=== PATIENT | male | born 1950 | race Caucasian/White ===

== ENCOUNTER → 2016-04-02 | Outpatient (CLI) | payer MEDICARE, BC ==
[2016-04-02 21:28] LABS: CH 31.6; CHCM 33.1; HCT 46.3 % (39.0-53.0); HGB 15.3 gm/dL (13.0-17.5); MCH 31.7 pg (25.0-35.0); MCHC 33.1 g/dL (31.0-37.0); MCV 95.7 fL (80.0-100.0); Mean Platelet Volume 9.1; RBC 4.83 m/uL (4.30-5.90); RDW 13.1 % (11.5-15.5); WBC 4.7 k/uL (3.8-10.6)
[2016-04-02 21:35] LABS: Anion Gap 10 mmol/L; Blood Urea Nitrogen 19 mg/dL (9-20); Calcium 10.4 mg/dL (8.4-10.2); Carbon Dioxide 29 mmol/L (22-30); Chloride 104 mmol/L (98-107); Glucose 99 mg/dL (74-99); Non-African American GFR(MDRD) >60 (>60 ml/min/1.73 sqM); Potassium 5.4 mmol/L (3.5-5.1); Sodium 143 mmol/L (137-145)
== END | disposition home or self-care (01) ==
LOC: MMGSC 15:10
PROVIDERS: ATTEND Specialist
DX: J43.9 Emphysema, unspecified (principal)
CPT/HCPCS: 36415; 80048; 85027

== ENCOUNTER → 2017-04-12 | Outpatient (CLI) | payer MEDICARE, BC ==
[2017-04-12 19:01] LABS: Basophils % (A) 1 %; Eosinophils # (A) 0.3 k/uL (0-0.7); Eosinophils % (A) 6 %; HCT 45.5 % (39.0-53.0); HGB 14.9 gm/dL (13.0-17.5); Lymphocytes # (A) 1.1 k/uL (1.0-4.8); Lymphocytes % (A) 24 %; MCH 30.6 pg (25.0-35.0); MCHC 32.7 g/dL (31.0-37.0); MCV 93.5 fL (80.0-100.0); Mean Platelet Volume 9.2; Monocytes # (A) 0.3 k/uL (0-1.0); Monocytes % (A) 6 %; Neutrophils # (A) 2.8 k/uL (1.3-7.7); Neutrophils % (A) 60 %; Platelet Count 206 k/uL (150-450); RBC 4.87 m/uL (4.30-5.90); WBC 4.8 k/uL (3.8-10.6)
[2017-04-12 19:05] LABS: ALT 106 U/L (21-72); AST 58 U/L (17-59); Albumin 4.6 g/dL (3.5-5.0); Alkaline Phosphatase 43 U/L (38-126); Anion Gap 11 mmol/L; Blood Urea Nitrogen 22 mg/dL (9-20); Calcium 10.3 mg/dL (8.4-10.2); Carbon Dioxide 28 mmol/L (22-30); Chloride 105 mmol/L (98-107); Cholesterol 123 mg/dL (<200); Glucose 100 mg/dL (74-99); HDL Cholesterol 49 mg/dL (40-60); LDL Cholesterol,Calculated 61 mg/dL (0-99); Potassium 4.6 mmol/L (3.5-5.1); Sodium 144 mmol/L (137-145); Total Protein 7.4 g/dL (6.3-8.2); Triglycerides 64 mg/dL (<150)
[2017-04-12 19:24] LABS: T4, Free (Free Thyroxine) 1.07 ng/dL (0.78-2.19)
[2017-04-12 19:38] LABS: PSA Annual Screen 3.04 ng/mL (0.00-4.00)
== END | disposition home or self-care (01) ==
LOC: MMGSC 10:24
PROVIDERS: ATTEND Family Medicine
DX: I10 Essential (primary) hypertension (principal); E78.5 Hyperlipidemia, unspecified; Z12.5 Encounter for screening for malignant neoplasm of prostate
CPT/HCPCS: 84439; 80061; 80053; 84443; 85025; 36415; G0103

== ENCOUNTER → 2017-04-12 | Outpatient (CLI) | payer MEDICARE, BC | END | disposition home or self-care (01) | LOC: MMGSC 10:29 | PROVIDERS: ATTEND Specialist | DX: I49.3 Ventricular premature depolarization (principal); Q21.1 Atrial septal defect; E78.00 Pure hypercholesterolemia, unspecified; I10 Essential (primary) hypertension; I60.9 Nontraumatic subarachnoid hemorrhage, unspecified; N40.0 Benign prostatic hyperplasia without lower urinary tract symptoms; R94.31 Abnormal electrocardiogram [ECG] [EKG] | CPT/HCPCS: 82550 ==

== ENCOUNTER → 2018-04-12 | Outpatient (CLI) | payer MEDICARE, BC ==
--- NOTE | 2018-04-12 12:07 | MR ---
EXAMINATION TYPE: MR lumbar spine wo con DATE OF EXAM: 04/12/2018 11:09 AM COMPARISON: NONE HISTORY: Low back pain CONTRAST: None Multiplanar, MultiSpin echo imaging of the lumbar spine was performed. L1-L2: Normal disc appearance without desiccation. No herniation, protrusion or disc bulging. No ca nal stenosis is present. Foramina are patent bilaterally. L2-L3: Mild to moderate disc desiccation. Circumferential disc bulge. Mild effacement ventral thecal sac. No evidence for central stenosis or disc herniation. Foramina are patent bilaterally. L3-L4: Mild to moderate disc desiccation. Circumferential disc bulge. Mild effacement ventral thecal sac. No evidence for central stenosis or disc herniation. Foramina are patent bilaterally. L4-L5: Moderate the disc desiccation. Circumferential disc bulge moderate in degree with effacement v entral thecal sac. Effacement ventral thecal sac with bilateral lateral recess stenosis. No overt meg tral stenosis. Bilateral foraminal encroachment right greater than left. Grade 1 anterolisthesis L4 a nd L5 measuring 3 mm. L5-S1: Severe disc desiccation. Circumferential disc bulge. Mild effacement ventral thecal sac. No ev idence for central stenosis or disc herniation. Foramina are patent bilaterally. Lumbar segments are intact. No paraspinal masses are identified. Conus medullaris has a normal appe arance. Left renal cyst partially imaged. Scattered ventral spondylosis identified. IMPRESSION: 1. Multilevel lumbar degenerative disc disease and disc bulging. 2. Bilateral lateral recess stenosis L4-5 as noted.
== END ==
LOC: RADMRIMAIN 10:35
PROVIDERS: ATTEND Psychiatry & Neurology Neurology
DX: M48.061 Spinal stenosis, lumbar region without neurogenic claudication (principal); M51.26 Other intervertebral disc displacement, lumbar region; M51.36 Other intervertebral disc degeneration, lumbar region
CPT/HCPCS: 72148

== ENCOUNTER 2018-04-21 09:17 | Day surgery (SDC) | payer MEDICARE, BC ==
[2018-04-19 17:20] VITALS: BMI 26.8
--- NOTE | 2018-04-20 17:45 | HP ---
HISTORY AND PHYSICAL CHIEF COMPLAINT: Right hand pain and numbness. HISTORY OF PRESENT ILLNESS: The patient is a 68-year-old [id number] retired gentleman who presents with progressive right hand pain and numbness for the past several years. He has had significant night symptoms in addition to difficulty with gripping and grasping. He has tried bracing and medications, with only partial temporary relief. PAST MEDICAL HISTORY: Significant for: 1. Hypertension. 2. Previous CVA. PAST SURGICAL HISTORY: Significant for: 1. Left knee arthroscopy. 2. Hernia repair. 3. Appendectomy. CURRENT MEDICATIONS: 1. Amlodipine. 2. Aspirin. 3. Atorvastatin. 4. Gabapentin. 5. Celebrex. ALLERGIES: CODEINE. FAMILY HISTORY: Significant for cancer and heart disease. SOCIAL HISTORY: Negative for current tobacco or alcohol use. REVIEW OF SYSTEMS: Sixteen-point review of systems otherwise is reviewed and is noncontributory. PHYSICAL EXAMINATION: The patient is approximately 5 feet 10 inches, 185 pounds of mesomorphic habitus. HEENT exam is nonfocal. Neck is supple. He is nontender about the right shoulder and elbow. On examination of the right wrist, he has a positive Tinel's over the carpal canal. He has a positive carpal tunnel compression test. Abductor pollicis brevis strength is 5-/ 5. He has moderate thenar wasting. Light touch is diminished in the right thumb, index, middle and ring finger. EMG report 03/01/2018 of right upper extremity shows severe carpal tunnel syndrome. IMPRESSION: Right carpal tunnel syndrome, symptomatic. RECOMMENDATIONS: I talked to the patient at length regarding his condition and treatment options. At this point he is quite symptomatic and opts to proceed with surgery. We will plan to proceed with right carpal tunnel release. Risks and benefits were discussed at length in layman's terms. We will likely perform that utilizing local anesthetic and IV sedation as an outpatient procedure. MMODL / IJN: [id number] / CHRISTIANE
[~2018-04-21 09:17] MED LIST: DEXAMETHASONE SOD PHOSPHATE 10 MG/ML 1 ML VIAL IV ONE; LACTATED RINGERS 1,000 ML IV SCH; MIDAZOLAM 2 MG/2 ML VIAL IV PRN; ONDANSETRON 4 MG/2 ML VIAL IVP ONE; ceFAZolin IN SWFI 2 GM/20 ML SYRINGE IVP ONE; fentaNYL (PF) 50 MCG/ML 2 ML AMP IV PRN
[2018-04-21 09:45] VITALS: TEMP 97.6
[2018-04-21] MEDS ORDERED: LIDOCAINE 1% 20 ML VIAL (10MG/ML) FOR IV START INTRADERMA ONE (09:58)
[2018-04-21] MEDS ORDERED: BUPIVACAINE (PF) 0.25% 30 ML VIAL SQ ONE ×2 (11:45→11:59)
[2018-04-21] MEDS ORDERED: fentaNYL (PF) 50 MCG/ML 2 ML AMP ONE (11:45)
[2018-04-21] MEDS ORDERED: PROPOFOL 10 MG/ML 20 ML VIAL IV ONE (11:45)
[2018-04-21] MEDS ORDERED: MIDAZOLAM 2 MG/2 ML VIAL ONE (11:45)
[2018-04-21] MEDS ORDERED: SODIUM CHLORIDE 0.9% 50 ML with ceFAZolin 2,000 MG IV ONE ×2 (11:50)
--- NOTE | 2018-04-21 12:16 | P.OP ---
Date of Procedure: 04/21/18 Preoperative Diagnosis: Right carpal tunnel syndromesymptomatic Postoperative Diagnosis: Same Procedure(s) Performed: Right carpal tunnel release Anesthesia: MAC, local Surgeon: Rigo Briones Estimated Blood Loss (ml): 2 Pathology: none sent Condition: stable Disposition: PACU Indications for Procedure: The patient is a 68-year-old gentleman who presents with progressive right hand pain and numbness secondary to carpal tunnel syndrome despite conservative measures. A discussion of the risks and benefits of operative intervention was made with patient. He opted to proceed. Operative risks to include infection, neurovascular injury, development of blood clots, possible incomplete resolution of symptoms, possible recurrence of symptoms and need for subsequent procedures was discussed. Informed consent was obtained. Operative Findings: As below Description of Procedure: The patient was brought to the operating room, and after induction of IV sedation the right upper extremity was prepped and draped in normal fashion. The proposed incision site was outlined skin marker in line with the radial aspect the fourth ray extending from the volar wrist crease distally 2-1/2 cm. One quarter percent plain Marcaine was injected into the proposed incision site. 9 mL was utilized. The tourniquet was inflated to 250 mmHg. The skin incision was then made. The skin was incised sharply. Subcutaneous tissues were divided sharply the superficial palmar fascia was identified and split in line with the skin incision. The transverse carpal ligament was identified and transected under direct visualization distally to level the palmar fat pad. Proximal was taken level of the volar wrist crease. A plane above and below the transverse carpal ligament was then bluntly developed with tenotomies. The confluence of the distal forearm fascia and the transverse carpal ligament was then transected under direct visualization proximally with the tines pointed in the ulnar direction. I felt this was adequate proximal release. Neural lysis was not performed. The wound was irrigated with normal saline. Electrocautery was used for hemostasis. The skin was reapproximated with simple 3-0 nylon sutures. A sterile dressing was applied. The tourniquet was deflated with less than 15 minutes total tourniquet time. Patient was awoken from sedation and transferred to the recovery room in good condition. Blood loss was estimated 1 mL. No complications were incurred. Sponge and needle counts were correct at the end the case.
[2018-04-21 13:04] VITALS: PULSE 55; RESP 18
[2018-04-21 13:18] VITALS: BP 133/81
== END 2018-04-21 13:40 | disposition home or self-care (01) ==
LOC: OR 09:17
PROVIDERS: ATTEND Orthopaedic Surgery
DX: G56.01 Carpal tunnel syndrome, right upper limb (principal); I10 Essential (primary) hypertension; R56.9 Unspecified convulsions; G25.0 Essential tremor; G47.33 Obstructive sleep apnea (adult) (pediatric); Z99.89 Dependence on other enabling machines and devices; Z79.82 Long term (current) use of aspirin; Z79.899 Other long term (current) drug therapy; Z88.5 Allergy status to narcotic agent; Z86.73 Personal history of transient ischemic attack (TIA), and cerebral infarction without residual deficits
CPT/HCPCS: 64721; J2250; J0690; J3010; J2704

== ENCOUNTER → 2019-11-21 | Outpatient (CLI) | payer MEDICARE, BC ==
[~2019-11-21] MED LIST changes: -DEXAMETHASONE SOD PHOSPHATE 10 MG/ML 1 ML VIAL IV ONE; +IODINE/POTASS IOD (LUGOLS) BOTTLE TOPICAL ONE; -LACTATED RINGERS 1,000 ML IV SCH; -MIDAZOLAM 2 MG/2 ML VIAL IV PRN; -ONDANSETRON 4 MG/2 ML VIAL IVP ONE; -ceFAZolin IN SWFI 2 GM/20 ML SYRINGE IVP ONE; -fentaNYL (PF) 50 MCG/ML 2 ML AMP IV PRN
--- NOTE | 2019-11-22 07:42 | NM ---
EXAMINATION TYPE: NM DatScan Brain SPECT DATE OF EXAM: 11/21/2019 COMPARISON: MRI brain 2009. HISTORY: Tremors. TECHNIQUE: 10 drops of Lugol's solution was administered 1 hour prior to injection as a thyroid bloc francine agent. After the administration of 4.59 mCi I-123 Ioflupane DaTscan. Images obtained 3 hours p ost injection. SPECT images of the brain were acquired with axial and coronal reconstructions. FINDINGS: The DaTSCAN demonstrates normal uptake of tracer throughout the striata. Consequently there is no evidence of loss of the pre-synaptic dopaminergic terminals on this investigation IMPRESSION: This normal appearance is against a diagnosis of idiopathic Parkinson?s disease (PD) or a Parkinsonia n syndrome (PS) and is seen in healthy individuals and also patients with essential tremor (ET), drug induced parkinsonism, and vascular pseudo-parkinsonism.
== END | disposition home or self-care (01) ==
LOC: RADNMMAIN 10:53
PROVIDERS: ATTEND Psychiatry & Neurology Neurology
DX: G21.19 Other drug induced secondary parkinsonism (principal); G25.0 Essential tremor
CPT/HCPCS: 78803; A9584

== ENCOUNTER → 2019-11-28 | Outpatient (CLI) | payer MEDICARE, BC ==
--- NOTE | 2019-11-28 16:03 | CT ---
EXAMINATION TYPE: CT urogram wo/w con DATE OF EXAM: 11/28/2019 COMPARISON: CT 11/09/2014 HISTORY: hematuria X [address] DLP: 2277 mGycm, Automated Exposure Control for Dose Reduction was Utilized. CONTRAST: CT scan of the abdomen and pelvis is performed with oral and without and with IV Contrast, patient in jected with 100 mL of Isovue 300. FINDINGS: Urinary bladder is urine distended. LUNG BASES: No significant abnormality is appreciated. LIVER/GB: No significant change is appreciated, multiple probable cysts are scattered within the li ryan, gallbladder is unremarkable. PANCREAS: No significant abnormality is seen. SPLEEN: No significant abnormality is seen. ADRENALS: No significant abnormality is seen. KIDNEYS: There are bilateral nonobstructive renal calculi present, largest calculus at the lower pole the left kidney measures 6 mm, smaller calculi present at the lower pole of the right kidney, there is no hydronephrosis. Bilateral cortical cysts are again seen within the kidneys, the largest is at t he upper pole the left kidney and measures approximately 3.3 cm, there parapelvic cysts noted within the left kidney. The ureters show normal course and caliber. BOWEL: No significant abnormality is seen. PROSTATE/SEMINAL VESICLES: Prostate is enlarged, multiple calcifications are present in the base of t he bladder at the interface with the prostate gland, prostate shows deformity and mixed attenuation LYMPH NODES: No greater than 1cm abdominal or pelvic lymph nodes are appreciated. OSSEOUS STRUCTURES: Degenerative disc changes are present in the lumbar spine. OTHER: Urinary bladder shows mixed attenuation likely due to contrast mixing. IMPRESSION: Correlate for possible prostatitis, indeterminate calcifications in contour abnormality o f the prostate gland, there is prostatic hypertrophy. Bilateral nonobstructive nephrolithiasis. Corti clay cysts and parapelvic cysts.
== END | disposition home or self-care (01) ==
LOC: RADCTMAIN 13:22
PROVIDERS: ATTEND Urology
DX: N20.0 Calculus of kidney (principal); Z88.5 Allergy status to narcotic agent
CPT/HCPCS: 82565; 84520; 74178; 36415; 74400; Q9967

== ENCOUNTER → 2020-02-20 | Outpatient (CLI) | payer MEDICARE, BC ==
[2020-02-20 11:58] LABS: African American GFR (CKD) >90 (>60 ml/min/1.73 sqM); Anion Gap 6 mmol/L; Blood Urea Nitrogen 19 mg/dL (9-20); Carbon Dioxide 28 mmol/L (22-30); Chloride 105 mmol/L (98-107); Glucose 109 mg/dL (74-99); Non-African American GFR(CKD) >90 (>60 ml/min/1.73 sqM); Potassium 4.4 mmol/L (3.5-5.1); Sodium 139 mmol/L (137-145)
[2020-02-20 12:15] LABS: Basophils % (A) 1 %; Eosinophils # (A) 0.3 k/uL (0-0.7); Eosinophils % (A) 8 %; HCT 42.9 % (39.0-53.0); HGB 14.1 gm/dL (13.0-17.5); Lymphocytes % (A) 27 %; MCHC 32.7 g/dL (31.0-37.0); MCV 94.6 fL (80.0-100.0); Mean Platelet Volume 7.9; Monocytes # (A) 0.3 k/uL (0-1.0); Monocytes % (A) 8 %; Neutrophils # (A) 2.1 k/uL (1.3-7.7); Neutrophils % (A) 54 %; Platelet Count 188 k/uL (150-450); RBC 4.54 m/uL (4.30-5.90); RDW 12.9 % (11.5-15.5); WBC 3.8 k/uL (3.8-10.6)
== END | disposition home or self-care (01) ==
LOC: LABPAT 11:08
PROVIDERS: ATTEND Urology
DX: Z01.818 Encounter for other preprocedural examination (principal); C61 Malignant neoplasm of prostate; Z79.899 Other long term (current) drug therapy
CPT/HCPCS: 36415; 80048; 85025; 86850; 86900; 86901

== ENCOUNTER 2020-02-29 10:11 | Day surgery (SDC) | payer MEDICARE, BC ==
[2020-02-25 15:16] VITALS: BMI 26.5
--- NOTE | 2020-02-28 16:41 | P.GSHP ---
History of Present Illness H&P Date: 02/24/20 Chief Complaint: Prostate cancer The patient is a 70-year-old white male initially seen in October 2019 for evaluation of gross hematuria. He underwent a TURP approximately 5 years ago. RASHID revealed firmness at the right prostatic base. A computed tomography scan showed bilateral renal calculi and bilateral renal cysts. Cystoscopy revealed calculi adherent to the mucosa of the prostatic urethra. The PSA level was 4.6. Prostate ultrasound revealed a prostate volume of 62.4 mL. 5 of 12 biopsies showed evidence of adenocarcinoma. Biopsies of the right apex and left apex showed low volume [place] 6 adenocarcinoma. I asked his of the right base and right mid showed [place] 7 adenocarcinoma (4+3). Alternative treatment options were reviewed; he is felt to be best suited for IMRT or robotic prostatectomy. He has elected to undergo the latter. He states that he has undergone an umbilical hernia repair in the past, and that he was admitted in 2014 for possible diverticulitis. - Cardiovascular Cardiovascular: Reports high blood pressure - Genitourinary (Male) Genitourinary: Reports hematuria, Reports urinary frequency Past Medical History Past Medical History: CVA/TIA, Hyperlipidemia, Hypertension, Musculoskeletal Disorder, Neurologic Disorder, Prostate Disorder, Sleep Apnea/CPAP/BIPAP Additional Past Medical History / Comment(s): Past hx. of subarachnoid bleed, trigeminal neuralgia, benign essential tremors, uses CPAP, kidney stones History of Any Multi-Drug Resistant Organisms: None Reported Past Surgical History: Appendectomy, Cardiac Ablation, Hernia Repair, Orthopedic Surgery, Prostate Surgery Additional Past Surgical History / Comment(s): TURP, L knee arthroscopy, R toe surgery, cardiac ablation x2, surg for pyloric stenosis as a baby Past Anesthesia/Blood Transfusion Reactions: No Reported Reaction Past Psychological History: No Psychological Hx Reported Past Alcohol Use History: None Reported Past Drug Use History: None Reported - Past Family History Father Additional Family Medical History / Comment(s): MS Sister(s) Family Medical History: Cancer Additional Family Medical History / Comment(s): Breast Brother(s) Family Medical History: Cancer Additional Family Medical History / Comment(s): Lung Cancer. Medications and Allergies Home Medications Medication Instructions Recorded Confirmed Type Aspirin 81 mg PO DAILY 03/13/14 02/25/20 History Primidone [Mysoline] 250 mg PO HS 03/13/14 02/25/20 History Ascorbic Acid [Vitamin C] 500 mg PO DAILY 11/09/14 02/25/20 History Gabapentin [Neurontin] 400 mg PO TID 11/09/14 02/25/20 History Multivitamins, Thera [Multivitamin 1 tab PO DAILY 11/09/14 02/25/20 History (formulary)] Potassium Gluconate 99 mg PO DAILY 11/09/14 02/25/20 History Atorvastatin [Lipitor] 20 mg PO HS 04/19/18 02/25/20 History Calcium/Magnesium/Zinc 1 each PO DAILY 04/19/18 02/25/20 History [Nitlykt-Cxcaykehp-Whuy Tablet] Celecoxib [CeleBREX] 200 mg PO DAILY 04/19/18 02/25/20 History Cholecalciferol [Vitamin D3] 1,000 unit PO DAILY 04/19/18 02/25/20 History Fish Oil/Dha/Epa [Fish Oil 1,200 1 each PO DAILY 04/19/18 02/25/20 History mg Fish Oil] Ubidecarenone [Co Q-10] 100 mg PO DAILY 04/19/18 02/25/20 History Vitamin B Complex 1 each PO DAILY 04/19/18 02/25/20 History amLODIPine [Norvasc] 2.5 mg PO QAM 04/19/18 02/25/20 History Acetaminophen [Tylenol] 500 - 1,000 mg PO Q4-6H PRN 02/25/20 02/25/20 History Primidone [Mysoline] 50 mg PO HS 02/25/20 02/25/20 History Primidone [Mysoline] 100 mg PO 1200 02/25/20 02/25/20 History Primidone [Mysoline] 100 mg PO QAM 02/25/20 02/25/20 History Allergies Allergy/AdvReac Type Severity Reaction Status Date / Time codeine Allergy Itching, Verified 02/25/20 14:47 insomnia Surgical - Exam - General well developed, well nourished, no distress - Neck no masses, trachea midline - Respiratory normal respiratory effort - Genitourinary normal penis with no external lesions, testicles non-tender - Rectum Rectum: normal sphincter tone, no masses, other (Right prostatic base firmness) - Psychiatric oriented to time, oriented to person, oriented to place, speech is normal, memory intact Assessment and Plan (1) Malignant neoplasm of prostate Status: Acute Code(s): C61 - MALIGNANT NEOPLASM OF PROSTATE SNOMED Code(s): 461665130 Plan: Robotic-assisted laparoscopic prostatectomy with bilateral pelvic lymphadenectomy. The procedure has been reviewed in detail with the patient. I explained in great detail the potential risks, which include anesthesia, bleeding, and infection. In addition, I went into great detail concerning the possibility of postop urinary incontinence, which may fail to resolve. I explained that other complications include intestinal injury (which may require a colostomy), ureteral injury, swelling of the penis post-operatively, bladder neck contracture, urethral stricture, lymphocele, post-operative ileus, thrombophlebitis, wound separation, and possible urinary fistula. The patient has also been advised of the possibility of treatment failure, and the possible need for adjuvant therapy. The decision has been made not to preserve the neurovascular bundles.
[~2020-02-29 10:11] MED LIST changes: +DEXAMETHASONE SOD PHOSPHATE 4 MG/ML 1 ML VIAL IV ONE; +HEPARIN SODIUM,PORCINE 5,000 UNIT/ML 1 ML VIAL SQ PRN; -IODINE/POTASS IOD (LUGOLS) BOTTLE TOPICAL ONE; +LIDOCAINE 1% (10MG/ML) FOR IV START INTRADERMA PRN
[2020-02-29] MEDS ORDERED: ONDANSETRON 4 MG/2 ML VIAL ONE (10:51)
[2020-02-29] MEDS: LACTATED RINGERS 1,000 ML IV SCH ×2 (10:56→23:19)
[2020-02-29] MEDS ORDERED: MIDAZOLAM 2 MG/2 ML VIAL IV ONE (11:46)
[2020-02-29] MEDS ORDERED: HYDROmorphone (PF) 1 MG/ML ONE (13:16)
[2020-02-29] MEDS ORDERED: ROPIVACAINE 5 MG/ML 30 ML VIAL ONE (13:16)
[2020-02-29] MEDS ORDERED: SUCCINYLCHOLINE CHLORIDE 100 MG/5 ML SYR IV ONE (13:16)
[2020-02-29] MEDS ORDERED: MIDAZOLAM 2 MG/2 ML VIAL ONE (13:16)
[2020-02-29] MEDS ORDERED: LIDOCAINE 1% INJ 10MG/ML (20 ML MDV) ONE (13:16)
[2020-02-29] MEDS ORDERED: NEOSTIGMINE 1 MG/ML 10 ML VIAL ONE (13:16)
[2020-02-29] MEDS ORDERED: GLYCOPYRROLATE 0.2 MG/ML 2 ML VIAL ONE (13:16)
[2020-02-29] MEDS ORDERED: PROPOFOL 10 MG/ML 20 ML VIAL IV ONE (13:16)
[2020-02-29] MEDS ORDERED: KETOROLAC 15 MG/ML 1 ML VIAL ONE (13:16)
[2020-02-29] MEDS ORDERED: ROCURONIUM 10 MG/ML (10 ML VIAL) IV ONE (13:16)
[2020-02-29] MEDS ORDERED: fentaNYL (PF) 50 MCG/ML 2 ML AMP ONE (13:16)
[2020-02-29] MEDS ORDERED: BUPIVACAINE (PF) 0.25% 30 ML VIAL SQ ONE ×3 (14:21→17:05)
[2020-02-29] MEDS ORDERED: LACTATED RINGERS 1,000 ML IV ONE (16:59)
[2020-02-29] MEDS ORDERED: HYDROmorphone 0.5 MG/0.5 ML SYRINGE IVP ONE (17:43)
--- NOTE | 2020-02-29 18:06 | P.OP ---
Date of Procedure: 02/29/20 Preoperative Diagnosis: Adenocarcinoma of the prostate Postoperative Diagnosis: Same Procedure(s) Performed: Robotic-assisted laparoscopic prostatectomy (RALP) with bilateral pelvic lymphadenectomy Anesthesia: SYLVIA Surgeon: Ja James Estimated Blood Loss (ml): 150 IV fluids (ml): 900 Pathology: other (Prostate, seminal vesicles, pelvic lymph nodes) Condition: stable Disposition: PACU Indications for Procedure: The patient is a 70-year-old white male initially seen in October 2019 for evaluation of gross hematuria. He underwent a TURP approximately 5 years ago. RASHID revealed firmness at the right prostatic base. A computed tomography scan showed bilateral renal calculi and bilateral renal cysts. Cystoscopy revealed calculi adherent to the mucosa of the prostatic urethra. The PSA level was 4.6. Prostate ultrasound revealed a prostate volume of 62.4 mL. 5 of 12 biopsies showed evidence of adenocarcinoma. Biopsies of the right apex and left apex showed low volume [place] 6 adenocarcinoma. I asked his of the right base and right mid showed [place] 7 adenocarcinoma (4+3). Alternative treatment options were reviewed; he is felt to be best suited for IMRT or robotic prostatectomy. He has elected to undergo the latter. Operative Findings: No evidence of extraprostatic disease. Description of Procedure: The patient was taken in the operating room and placed in the dorsal lithotomy position, with his legs supported in Dimas stirrups. He was carefully positioned on a beanbag for stability. The abdomen and external genitalia were prepped and draped sterilely. A Castle catheter was inserted. The Veress needle was passed through the anterior abdominal wall immediately cephalad to the umbilicus, and insufflation was performed to a pressure of 20 mm Hg. Once insufflation was performed, the Veress needle was removed and a supraumbilical incision was made, through which a 12 mm camera port was placed. Under camera guidance, 3 8 mm robotic ports were placed, 2 on the left and one on the right. An additional 12 mm port was placed on the right lateral side for use as an medical claims assistant port. A 5 mm port was placed to the right of the camera port for suction. The patient was placed in Trendelenburg position, and docking was then performed to the da Finesse system utilizing a 4-arm approach. The abdomen was examined. The sigmoid colon was mobilized out of the pelvis. The peritoneum was incised lateral to the medial umbilical ligaments bilaterally, exposing the pubis. The peritoneum was then incised across the midline, allowing the bladder flap to be taken down. The endopelvic fascia was opened bilaterally, and muscular attachments from the urogenital diaphragm were swept away from the prostate. Bilateral pelvic lymphadenectomies were performed in the standard fashion. The peritoneal incisions were extended in a cephalad direction, and the vas deferens were divided bilaterally. Margins of dissection were the bifurcation of the iliac vessels proximally, the circumflex iliac vein distally, the external iliac artery laterally, and the obturator nerve medially. A combination of sharp and blunt dissection was used. Care was taken to avoid any neurovascular injury, and the use of monopolar electrocautery was avoided immediately adjacent to neurovascular structures. The lymphatic package was clipped distally. No enlarged lymph nodes were encountered. There were no complications. The vesical neck was incised transversely, down to the lumen. The Castle catheter was brought out through the anterior vesical neck incision and was used for traction. The prostate was noted to be nodular as a result of a prior TURP. The ureteral orifice his were identified. The posterior aspect of the vesical neck was intact and served as a useful landmark. The lateral aspects of the vesical neck was incised down to the posterior vesical neck, which was then divided. The anterior layer of the Denonvilliers fascia was incised, exposing the vas deferens. Each were isolated and divided. Next, each of the seminal vesicles were dissected away from adjacent tissues, and vascular attachments were cauterized and divided. The posterior leaf of Denonvilliers fascia was incised transversely, allowing entry into the plane between the prostate and rectum. With lateral spreading, this plane was developed down to the apex. This exposed the lateral vascular pedicles bilaterally. These were clipped and divided in an antegrade fashion, down to the apex. A nerve sparing procedure was not performed. The remaining apical attachments were swept away from the prostate. The dorsal venous complex was incised, as well as periurethral tissue. At this point, only the urethra remained intact. This was transected immediately distal to the prostatic apex using cold scissors. The specimen was placed within a specimen bag. The dorsal venous complex was sutured using a V-Loc suture in a running fashion. A second V-Loc suture was then used to place the Armin stitch, incorporating the rhabdosphincter and the edge of Denonvilliers fascia. This allowed the bladder to be taken down to the urethra, leaving the vesical neck immediately adjacent to the urethra. The vesicourethral anastomosis was then performed using a V-Loc suture in a running fashion. Care was taken to identify and avoid the ureteral orifices when performing the anastomosis. The redundant bladder neck was closed anteriorly in a tennis racquet fashion. After completing the anastomosis, an 18-[place]ib[place] Castle catheter was placed and approximately 150 mL of 0.9 normal saline were instilled into the bladder. No extravasation of irrigant from the vesicourethral anastomosis was noted. Surgicel was placed over the neurovascular bundles bilaterally. Tisseel was sprayed into the pelvis over the vascular pedicles, dorsal vein, and vesicourethral anastomosis. The patient was returned to the supine position. Undocking was performed, and the specimen bag sutures were passed through the camera port. After removing all the ports and allowing all of the CO2 to be released from the peritoneal cavity, the camera port incision was enlarged to allow removal of the surgical specimen. The fascia of this incision was then closed using 0-PDS suture in a running fashion. Each of the skin incisions were then closed using 4-0 Monocryl suture in a subcuticular fashion. Marcaine was injected at each of the incision sites. Dermabond was applied to each incision. The Castle catheter was connected to gravity drainage. All sponge and needle counts were correct. The patient tolerated the procedure well was taken to the recovery room in stable condition.
[2020-02-29] MEDS ORDERED: MAG HYDROX/AL HYDROX/SIMETH 30 ML CUP PO PRN (18:10)
[2020-02-29] MEDS ORDERED: ACETAMINOPHEN TAB 325 MG TAB PO PRN (18:10)
[2020-02-29] MEDS ORDERED: ONDANSETRON 4 MG/2 ML VIAL IVP PRN (18:10)
[2020-02-29] MEDS ORDERED: PRIMIDONE 50 MG TAB PO SCH (21:00)
[2020-02-29] MEDS: PRIMIDONE 250 MG TAB PO SCH (21:46)
[2020-02-29] MEDS: GABAPENTIN 400 MG CAP PO SCH (21:47)
[2020-02-29] MEDS: HEPARIN SODIUM,PORCINE 5,000 UNIT/ML 1 ML VIAL SQ SCH (21:47)
[2020-02-29] MEDS: PRIMIDONE 50 MG TAB PO SCH (21:47)
[2020-02-29] MEDS: ATORVASTATIN 20 MG TAB PO SCH (21:47)
[2020-02-29] MEDS: DEXTROSE 5%-0.45% NACL 1,000 ML IV SCH ×2 (23:19→23:26)
[2020-02-29] MEDS: HYDROmorphone 1 MG/ML 1 ML SYRINGE IVP PRN (23:39)
[2020-03-01] MEDS: HYDROmorphone 1 MG/ML 1 ML SYRINGE IVP PRN (02:10)
[2020-03-01] MEDS: KETOROLAC 15 MG/ML 1 ML VIAL IVP PRN ×2 (04:33→15:47)
[2020-03-01] MEDS ORDERED: HYDROcodone/APAP 5-325MG 1 EACH TAB PO STA (09:14)
[2020-03-01] MEDS: GABAPENTIN 400 MG CAP PO SCH ×3 (09:25→20:42)
[2020-03-01] MEDS: HEPARIN SODIUM,PORCINE 5,000 UNIT/ML 1 ML VIAL SQ SCH ×2 (09:25→20:41)
[2020-03-01] MEDS: amLODIPine 2.5 MG TAB PO SCH (09:25)
[2020-03-01] MEDS: PRIMIDONE 50 MG TAB PO SCH ×3 (09:25→20:42)
--- NOTE | 2020-03-01 10:37 | P.PN ---
Progress Note - Text Progress Note Date: 03/01/20 The patient is afebrile. He has had moderate lower and epigastric abdominal pain following the surgery. He required IV Dilantin during the night for control of the pain. He is tolerating liquids and a diet. His incisions are intact and he has minimal scrotal edema. Urine draining from his catheter is clear. The patient will be ambulated and if he is more comfortable he will be discharged later in the day.
[2020-03-01] MEDS: DEXTROSE 5%-0.45% NACL 1,000 ML IV SCH ×3 (15:46→23:12)
[2020-03-01] MEDS ORDERED: HYDROcodone/APAP 5-325MG 1 EACH TAB PO PRN (19:05)
[2020-03-01] MEDS: LACTATED RINGERS 1,000 ML IV SCH (19:59)
[2020-03-01] MEDS: ATORVASTATIN 20 MG TAB PO SCH (20:41)
[2020-03-01] MEDS: PRIMIDONE 250 MG TAB PO SCH (20:41)
[2020-03-02 04:06] VITALS: RESP 18
[2020-03-02 07:23] VITALS: BP 136/77; PULSE 51; TEMP 98.2
[2020-03-02] MEDS: DEXTROSE 5%-0.45% NACL 1,000 ML IV SCH (07:59)
[2020-03-02] MEDS: GABAPENTIN 400 MG CAP PO SCH (08:00)
[2020-03-02] MEDS: HEPARIN SODIUM,PORCINE 5,000 UNIT/ML 1 ML VIAL SQ SCH (08:00)
[2020-03-02] MEDS: amLODIPine 2.5 MG TAB PO SCH (08:00)
[2020-03-02] MEDS: PRIMIDONE 50 MG TAB PO SCH ×2 (08:00→11:50)
--- NOTE | 2020-03-02 11:07 | P.DS ---
Providers Date of admission: 02/29/2020 Expected date of discharge: 03/02/20 Attending physician: Ja James Primary care physician: [facility] Course: The patient was recently diagnosed with prostate cancer. He was admitted for the purpose of robotically-assisted laparoscopic prostatectomy and this was performed on the date of admission under general anesthesia. The urethral catheter was left following the surgery and continued to drain clear urine. The patient had moderate lower and upper abdominal pain on the night following surgery and the day following surgery which was only controllable with IV analgesics. It gradually subsided. The patient was discharged on 03/02 at which time he had minimal pain and was tolerating a regular diet. His abdominal incision appeared to be healing well and there was no significant scrotal edema. The patient will be discharged with the catheter in place and will follow-up with Dr. James on 03/12. Procedures: Robotically-assisted laparoscopic prostatectomy 02/29/2020 Patient Condition at Discharge: Good Plan - Discharge Summary Discharge Rx Participant: No New Discharge Prescriptions: New Ciprofloxacin HCl [Cipro] 250 mg PO Q12HR #6 tablet Ketorolac [Toradol] 10 mg PO Q6HR #12 tab Hydrocodone/Acetaminophen [Bath 5-325] 1 each PO Q6HR PRN #5 tab PRN Reason: Pain Control No Action Aspirin 81 mg PO DAILY Primidone [Mysoline] 250 mg PO HS Ascorbic Acid [Vitamin C] 500 mg PO DAILY Multivitamins, Thera [Multivitamin (formulary)] 1 tab PO DAILY Gabapentin [Neurontin] 400 mg PO TID Potassium Gluconate 99 mg PO DAILY Celecoxib [CeleBREX] 200 mg PO DAILY amLODIPine [Norvasc] 2.5 mg PO QAM Cholecalciferol [Vitamin D3] 1,000 unit PO DAILY Atorvastatin [Lipitor] 20 mg PO HS Vitamin B Complex 1 each PO DAILY Ubidecarenone [Co Q-10] 100 mg PO DAILY Fish Oil/Dha/Epa [Fish Oil 1,200 mg Fish Oil] 1 each PO DAILY Calcium/Magnesium/Zinc [Qcbtvpm-Kandvkcag-Pkcc Tablet] 1 each PO DAILY Acetaminophen [Tylenol] 500 - 1,000 mg PO Q4-6H PRN PRN Reason: Pain Primidone [Mysoline] 100 mg PO QAM Primidone [Mysoline] 100 mg PO 1200 Primidone [Mysoline] 50 mg PO HS Discharge Medication List Aspirin 81 mg PO DAILY 03/13/14 [History] Primidone [Mysoline] 250 mg PO HS 03/13/14 [History] Ascorbic Acid [Vitamin C] 500 mg PO DAILY 11/09/14 [History] Gabapentin [Neurontin] 400 mg PO TID 11/09/14 [History] Multivitamins, Thera [Multivitamin (formulary)] 1 tab PO DAILY 11/09/14 [History] Potassium Gluconate 99 mg PO DAILY 11/09/14 [History] Atorvastatin [Lipitor] 20 mg PO HS 04/19/18 [History] Calcium/Magnesium/Zinc [Tazgkjw-Vccbvswgt-Owcw Tablet] 1 each PO DAILY 04/19/18 [History] Celecoxib [CeleBREX] 200 mg PO DAILY 04/19/18 [History] Cholecalciferol [Vitamin D3] 1,000 unit PO DAILY 04/19/18 [History] Fish Oil/Dha/Epa [Fish Oil 1,200 mg Fish Oil] 1 each PO DAILY 04/19/18 [History] Ubidecarenone [Co Q-10] 100 mg PO DAILY 04/19/18 [History] Vitamin B Complex 1 each PO DAILY 04/19/18 [History] amLODIPine [Norvasc] 2.5 mg PO QAM 04/19/18 [History] Acetaminophen [Tylenol] 500 - 1,000 mg PO Q4-6H PRN 02/25/20 [History] Primidone [Mysoline] 50 mg PO HS 02/25/20 [History] Primidone [Mysoline] 100 mg PO 1200 02/25/20 [History] Primidone [Mysoline] 100 mg PO QAM 02/25/20 [History] Ciprofloxacin HCl [Cipro] 250 mg PO Q12HR #6 tablet 02/29/20 [Rx] Ketorolac [Toradol] 10 mg PO Q6HR #12 tab 02/29/20 [Rx] Hydrocodone/Acetaminophen [Bath 5-325] 1 each PO Q6HR PRN #5 tab 03/01/20 [Rx] Follow up Appointment(s)/Referral(s): Ja James MD [STAFF PHYSICIAN] - 03/12/20 Activity/Diet/Wound Care/Special Instructions: Discharge home with Castle catheter. Instruct patient to use overnight drainage bag as well as urinary leg bag. Okay to shower. Diet as tolerated. No lifting, driving, or strenuous activity. Reassure patient that abdominal wall ecchymosis and penoscrotal swelling are normal. Instruct patient to begin taking antibiotics one day prior to Castle catheter removal. Pending Studies Pending Results: Final pathology report
[2020-03-02] MEDS: KETOROLAC 15 MG/ML 1 ML VIAL IVP PRN (11:56)
--- NOTE | 2020-03-03 09:35 | P.ANPRN ---
Procedure Note - Anesthesia - Nerve Block Performed Bilateral Transversus Abdominis Single Time Out Performed: Yes Date of Procedure: 02/29/20 Procedure Start Time: 11:45 Procedure Stop Time: 11:53 Location of Patient: PreOp Indication: Acute Post-Operative Pain, Requested by Surgeon Sedation Type: Sedate with meaningful contact maintained Preparation: Sterile Prep Position: Supine Needle Types: Pajunk Needle Gauge: 21 Ultrasound used to visualize needle placement: Yes Ultrasound used to observe medication spread: Yes Blood Aspirated: No Pain Paresthesia on Injection Noted: No Resistance on Injection: Normal Image Stored and Saved: Yes Events: Uneventful and Well Tolerated (ropi .5% 20cc plus dexamethasone 4mg)
== END 2020-03-02 12:53 | disposition home or self-care (01) ==
LOC: OR 10:11 → 4SSUR 18:03 → OR 03-02 12:53
PROVIDERS: ATTEND Urology
DX: C61 Malignant neoplasm of prostate (principal); I10 Essential (primary) hypertension; E78.5 Hyperlipidemia, unspecified; G50.0 Trigeminal neuralgia; G47.30 Sleep apnea, unspecified; Z87.442 Personal history of urinary calculi; Z88.5 Allergy status to narcotic agent; Z79.82 Long term (current) use of aspirin; Z79.1 Long term (current) use of non-steroidal anti-inflammatories (NSAID); Z79.899 Other long term (current) drug therapy; Z90.49 Acquired absence of other specified parts of digestive tract; Z98.890 Other specified postprocedural states; Z86.73 Personal history of transient ischemic attack (TIA), and cerebral infarction without residual deficits; Z99.89 Dependence on other enabling machines and devices; Z80.1 Family history of malignant neoplasm of trachea, bronchus and lung; Z80.3 Family history of malignant neoplasm of breast
CPT/HCPCS: 64488; 88307; 88309; 55866; 38571; C1762; J2250; J1644 ×3; J1100; J2710; J0690; J2405; J2001; J3010; J1170 ×3; J2795; J1885 ×3; J0330; J2704; 86850; 86900; 86901

== ENCOUNTER → 2020-04-09 | Outpatient (CLI) | payer MEDICARE, BC | END | disposition home or self-care (01) | LOC: LABWHC1 11:27 | PROVIDERS: ATTEND Urology | DX: C61 Malignant neoplasm of prostate (principal) | CPT/HCPCS: 36415; 84153 ==

== ENCOUNTER → 2021-04-10 | Outpatient (CLI) | payer MEDICARE, BC | END | disposition home or self-care (01) | LOC: LABWHC1 12:44 | PROVIDERS: ATTEND Family Medicine | DX: R09.82 Postnasal drip (principal); J02.9 Acute pharyngitis, unspecified; R05.9 Cough, unspecified | CPT/HCPCS: 36415; U0003; C9803 ==